=== PATIENT | female | born 1950 | race Caucasian/White ===

== ENCOUNTER 2016-11-15 13:53 | Emergency (ER) | payer MEDICARE, BC ==
[~2016-11-15] VITALS: Ht 160 cm; Wt 66.0 kg
[~2016-11-15 13:53] MED LIST: CARV12.52 PO; DIPH25 PO; ENOX40P SQ; HYDR-2768 PO; HYDR-3580 PO; LOSA50TA PO; PAXI10TA PO; PERI8.6T PO; THERM PO; THIA100T PO
[2016-11-15 14:14] VITALS: BP 157/83; PULSE 78; RESP 18; TEMP 98.5; O2SAT 95
[2016-11-15] MEDS ORDERED: POTA-243 PO (16:14)
[2016-11-15] MEDS ORDERED: HYDR25TA5 PO (16:14)
[2016-11-15] MEDS ORDERED: LOSA50TA PO (16:14)
[2016-11-15] MEDS ORDERED: CARV12.52 PO (16:14)
[2016-11-15] MEDS ORDERED: PARO1TAB71 PO (16:14)
[2016-11-15] MEDS ORDERED: MOME17I EACH NARE (17:16)
[2016-11-15] MEDS ORDERED: PRED-503 PO (17:16)
[2016-11-15] MEDS ORDERED: BENZ100 PO (17:16)
--- NOTE | 2016-11-15 17:18 | PD ---
HPI Chief Complaint: Cold / Flu Symptoms Time Seen by Provider: 17:14 Travel History International Travel<30 days: No Contact w/Intl Traveler<30days: No Traveled to known affect area: No History of Present Illness HPI 66-year-old female presents to the emergency Department with complaint of body aches, chills, cough, nasal congestion since yesterday. Reports feeling hot but cannot report a MAXIMUM TEMPERATURE. Has history of COPD. Reports tobacco use daily. Coughing up green/yellow phlegm. Uses an inhaler daily for COPD. Has albuterol inhaler and has been using it with good relief. Denies wheezing. Denies chest pain, shortness of breath. Denies ear pain. Reports throat irritation with cough. Cough is worse at night. Denies abdominal pain, nausea , vomiting. Has tried Benadryl with minimal relief of symptoms. Is requesting antibiotics so she does not get pneumonia. Dr. Hutson is primary care provider. No other modifying factors or associated signs and symptoms. PFSH Past Medical History Hx Anticoagulant Therapy: Yes (ASA 81mg) Arthritis: No Asthma: No Autoimmune Disease: No Anxiety: Yes (PANIC ATTACKS) Depression: No Heart Rhythm Problems: Yes (ATRIAL FIBRILLATION) Cancer: No Cardiac Catheterization: Yes Cardiovascular Problems: Yes High Cholesterol: Yes Chemotherapy: No Chest Pain: Yes Congestive Heart Failure: No COPD: Yes Cerebrovascular Accident: No Coronary Artery Disease: No Diabetes: No Diminished Hearing: No Endocrine: No Gastrointestinal Disorders: No GERD: No Genitourinary: No Headaches: No Hiatal Hernia: No Hypertension: Yes Immune Disorder: No Implanted Vascular Access Dvce: No Kidney Stones: No Musculoskeletal: Yes Neurologic: No Psychiatric: Yes Reproductive: Yes (HYSTERECTOMY) Respiratory: Yes Immunizations Current: Yes Migraines: No Radiation Therapy: No Renal Failure: No Seizures: No Sickle Cell Disease: No Sleep Apnea: No Thyroid Disease: No Ulcer: No Tetanus Vaccination: < 5 Years Influenza Vaccination: Yes Menopausal: Yes Past Surgical History Abdominal Surgery: No AICD: No Arteriovenous Shunt: No Cardiac Surgery: No Coronary Stent: Yes (X's 2) Ear Surgery: No Endocrine Surgery: No Eye Surgery: No Genitourinary Surgery: No Gynecologic Surgery: Yes (HYSTERECTOMY) Hysterectomy: Yes Insulin Pump: No Joint Replacement: No Neurologic Surgery: No Oral Surgery: No Pacemaker: No Thoracic Surgery: No Other Surgery: Yes (pylonidal cyst/NOSE RECONSTRUCTION) Social History Alcohol Use: Yes (Soc.) Tobacco Use: Yes (11/16 PPD) Substance Use: No Allergies-Medications (Allergen,Severity, Reaction): Coded Allergies: No Known Allergies (Unverified , 11/15/16) Reported Meds & Prescriptions Reported Meds & Active Scripts Active Tessalon Perles (Benzonatate) 100 Mg Cap 100 Mg PO TID PRN Nasonex Nasal [place] (Mometasone Furoate) 50 Mcg/Act Naspr 2 [place] EACH NARE DAILY PRN Deltasone (Prednisone) 20 Mg Tab 40 Mg PO DAILY 4 Days start 11/16/2016 Reported Losartan (Losartan Potassium) 50 Mg Tab 50 Mg PO DAILY Paroxetine (Paroxetine HCl) 10 Mg Tab 10 Mg PO BID Hydrochlorothiazide 25 Mg Tab 25 Mg PO DAILY Klor-Con 10 (Potassium Chloride) 10 Meq Tab 10 PO DAILY Carvedilol 12.5 Mg Tab 12.5 Mg PO BID Review of Systems Except as stated in HPI: all other systems reviewed are Neg Physical Exam Narrative GENERAL: Well-nourished, well-developed female patient, in no acute distress SKIN: Warm and dry. No rash. HEAD: Atraumatic. Normocephalic. EYES: Pupils equal and round at 3 mm with brisk reaction. No scleral icterus. No injection or drainage. PERRLA. ENT: Mucosa pink and moist. No erythema or exudates. No uvular edema. No uvular , palatal, or tonsillar deviation. Airway patent. EARS: Bilateral pinnae and external canals appear within normal limits. Bilateral tympanic membranes without erythema, dullness or perforation. NECK: Trachea midline. No lymphadenopathy. CARDIOVASCULAR: Regular rate and rhythm. No murmur appreciated. RESPIRATORY: No accessory muscle use. Clear to auscultation. Breath sounds equal bilaterally. GASTROINTESTINAL: Abdomen soft, non-tender, nondistended. Hepatic and splenic margins not palpable. Bowel sounds are active 4 quadrants. MUSCULOSKELETAL: No obvious deformities. No clubbing. No cyanosis. No edema. NEUROLOGICAL: Awake and alert. Oriented 3. No obvious cranial nerve deficits. Motor grossly within normal limits. Normal speech. Moves all extremities. 5/5 strength to all extremities. PSYCHIATRIC: Appropriate mood and affect; insight and judgment normal. Data Data Last Documented VS Vital Signs Date Time Temp Pulse Resp B/P Pulse Ox O2 Delivery O2 Flow Rate FiO2 1/1/17 14:14 98.5 78 18 157/83 95 Orders Prednisone (Deltasone) (11/15/16 17:30) MDM Medical Decision Making Medical Screen Exam Complete: Yes Emergency Medical Condition: Yes Medical Record Reviewed: Yes Differential Diagnosis Viral illness, acute bronchitis, COPD exacerbation, influenza Narrative Course 66-year-old female a chair and physical exam consistent with viral illness. She is afebrile and nontoxic-appearing. She is in no acute distress and her lung sounds are clear and equal throughout. Oxygen saturations 95% on room air and she is without retractions or tachypnea. History of COPD. Daily tobacco use. Uses it daily inhaler and an albuterol inhaler for COPD. Discussed viral illness and symptom management with patient; he showed requesting antibiotics for home. I will give the patient a prescription for azithromycin as requested. Patient has albuterol inhaler at home. Deltasone administered in the ER. Azithromycin, Deltasone, Nasonex, Tessalon Perles prescribed for home. Patient is medically cleared and stable for discharge. Discussed reasons to return to the emergency department. Instructed patient to follow up with primary care provider. Patient agrees with treatment plan. The patients vital signs are stable and the patient is stable for outpatient follow-up and treatment. Patient discharged home, stable and in no acute distress. Diagnosis Primary Impression: Viral illness Referrals: Primary Care Physician Patient Instructions: Acute Bronchitis (ED), Cold Symptoms (ED), General Instructions Additional Instructions: Ibuprofen or Tylenol as directed and as needed to reduce fever Use home inhalers as instructed and as needed for shortness of breath/wheezing Oral steroids as prescribed Suot-box-[id number] antihistamines or decongestants as directed and as needed for symptom management Get plenty of sleep/rest Drink plenty of fluids to prevent dehydration [place] diet to encourage nutrition such as crackers, fruit, applesauce, toast, soup etc. Use an air humidifier/turn off ceiling fans Follow-up with your primary care provider within 1-2 days Return immediately to the emergency department with worsening of symptoms Med/Other Pt SpecificInfo: Prescription(s) given Scripts Azithromycin 500 Mg [id number] Mg PO DAILY #5 TAB Ref 0 Prov:Caro Abreu [employer] 11/15/16 Benzonatate (Tessalon Perles)100 Mg [id number] Mg PO TID PRN (COUGH) #21 CAP Ref 0 Prov:Caro Abreu 11/15/16 Mometasone Nasal [place] (Nasonex Nasal [place])50 Mcg/Act Naspr2 [place] EACH NARE DAILY PRN (NASAL CONGESTION) #1 BOTTLE Ref 0 Prov:Caro Abreu 11/15/16 Prednisone (Deltasone)20 Mg Tab40 Mg PO DAILY 4 Days Ref 0 start 11/16/2016 Prov:Caro Abreu 11/15/16 Disposition: 01 DISCHARGE HOME Condition: Stable Caro Abreu Nov 15, 2016 17:18
[2016-11-15] MEDS ORDERED: AZIT500T2 PO (17:24)
[2016-11-15] MEDS ORDERED: predniSONE 20 MG TAB PO ONE (17:30)
== END 2016-11-15 17:43 | disposition home or self-care (01) ==
LOC: PHED 13:53 → PHEFT 17:43
DX: B34.9 Viral infection, unspecified (principal); I48.91 Unspecified atrial fibrillation; J44.9 Chronic obstructive pulmonary disease, unspecified; I10 Essential (primary) hypertension
CPT/HCPCS: 99283; J7512

== ENCOUNTER 2016-12-14 09:37 | Emergency (ER) | payer MEDICARE, BC ==
[~2016-12-14] VITALS: Ht 162.6 cm; Wt 61.5 kg
[~2016-12-14 09:37] MED LIST changes: +AZIT500T2 PO; +BENZ100 PO; -DIPH25 PO; -ENOX40P SQ; -HYDR-2768 PO; -HYDR-3580 PO; +HYDR25TA5 PO; +MOME17I EACH NARE; +PARO1TAB71 PO; -PAXI10TA PO; -PERI8.6T PO; +POTA-243 PO; +PRED-503 PO; -THERM PO; -THIA100T PO
[2016-12-14 09:46] VITALS: BP 142/82; PULSE 91; RESP 18; TEMP 98; O2SAT 92
[2016-12-14] MEDS ORDERED: BUPR100CR PO (10:17)
[2016-12-14] MEDS ORDERED: methylPREDNISolone SOD SUCC 125 MG/2 ML VIAL IVP ONE (10:30)
[2016-12-14] MEDS ORDERED: SODIUM CHLORIDE 0.9% FLUSH 5 ML FLUSH IVF PRN (10:30)
[2016-12-14] MEDS: RESP: ALBUTEROL 2.5 MG/IPRATROPIUM 0.5 MG NEB (SCH) INH (10:36)
[2016-12-14 10:45] VITALS: O2SAT 94
[2016-12-14 10:46] LABS: AUTOMATED NEUTROPHIL # 5.6 TH/MM3 (1.8-7.7); BASOPHIL # 0.1 TH/MM3 (0-0.2); BASOPHIL % 0.8 % (0.0-2.0); EOSINOPHIL % 0.4 % (0.0-4.0); HEMATOCRIT 56.5 % (35.0-46.0); HEMO FLAGS DIFF FINAL; LYMPH % 21.8 % (9.0-44.0); LYMPHOCYTE # 1.9 TH/MM3 (1.0-4.8); MEAN CELL VOLUME 98.9 FL (80.0-100.0); MEAN CORPUSCULAR HEMOGLOBIN 33.1 PG (27.0-34.0); MEAN CORPUSCULAR HGB CONC 33.5 % (32.0-36.0); MONO % 11.4 % (0.0-8.0); NEUT % 65.6 % (16.0-70.0); PLATELET COUNT 213 TH/MM3 (150-450); RED BLOOD COUNT 5.71 MIL/MM3 (4.00-5.30); RED CELL DISTRIBUTION WIDTH 12.3 % (11.6-17.2); WHITE BLOOD COUNT 8.6 TH/MM3 (4.0-11.0)
[2016-12-14 10:57] LABS: CHLORIDE 97 MEQ/L (98-107); POTASSIUM 3.9 MEQ/L (3.5-5.1); SODIUM (NA) 137 MEQ/L (136-145)
[2016-12-14 11:00] LABS: ANION GAP 9 MEQ/L (5-15); BICARBONATE 30.9 MEQ/L (21.0-32.0)
[2016-12-14 11:01] LABS: BLOOD UREA NITROGEN 17 MG/DL (7-18)
[2016-12-14 11:03] LABS: ALT (GPT) 30 U/L (10-53); AST (GOT) 18 U/L (15-37); GLOMERULAR FILTRATION RATE 75 ML/MIN (>89)
[2016-12-14 11:05] LABS: TOTAL BILIRUBIN ADULT 0.6 MG/DL (0.2-1.0)
[2016-12-14 11:06] LABS: ALKALINE PHOSPHATASE 90 U/L (45-117)
[2016-12-14 11:15] VITALS: BP 157/81; PULSE 86; RESP 18; O2SAT 91
--- NOTE | 2016-12-14 11:37 | RADHPO ---
EXAM DATE/TIME: 12/14/2016 11:23 [facility] COMPARISON: CHEST SINGLE AP, February 15, 2016, 0:00. INDICATIONS : Short of breath MEDICAL HISTORY : Chronic obstructive pulmonary disease. SURGICAL HISTORY : Cardiac stent x 2 ENCOUNTER: Initial ACUITY: 1 month PAIN SCORE: 0/10 LOCATION: Bilateral chest FINDINGS: PA and lateral views of the chest demonstrate the lungs to be hyperaerated consistent with COPD witho ut evidence of mass, infiltrate or effusion. The cardiomediastinal contours are unremarkable. [place] us structures are intact. CONCLUSION: Hyperaeration consistent with COPD. No acute cardiopulmonary process Gary Higuera MD on December 14, 2016 at 11:35 Board Certified Radiologist. This report was verified electronically.
[2016-12-14] MEDS ORDERED: MEDR4PAK PO (12:26)
--- NOTE | 2016-12-14 12:26 | PD ---
HPI Chief Complaint: Respiratory Symptoms Time Seen by Provider: 10:10 Travel History International Travel<30 days: No Contact w/Intl Traveler<30days: No Traveled to known affect area: No History of Present Illness HPI Patient is a 66-year-old female who comes in complaining of shortness of breath. She has had 2 courses of antibiotics over the past month, most recently finishing a Z-Rick about a week ago. She says she also finished a course of steroids last week. She has history of COPD and has been taking her medications as directed. She last used her nebulizer last night. She says she woke up this morning and checked her pulse ox which read at 88-91%, and this made her nervous. She says overall she has been feeling better, she has had decreased coughing, but she still feels short of breath. She denies any fever or chills. She denies any leg swelling. She denies any chest pain. PFSH Past Medical History Hx Anticoagulant Therapy: No Arthritis: No Asthma: No Autoimmune Disease: No Anxiety: Yes (Panic attacks) Depression: No Heart Rhythm Problems: Yes (AF) Cancer: No Cardiac Catheterization: Yes Cardiovascular Problems: Yes (HTN) High Cholesterol: Yes Chemotherapy: No Chest Pain: Yes Congestive Heart Failure: No COPD: Yes Cerebrovascular Accident: No Coronary Artery Disease: No Diabetes: No Diminished Hearing: No Endocrine: No Gastrointestinal Disorders: No GERD: No Genitourinary: No Headaches: No Hiatal Hernia: No Hypertension: Yes Immune Disorder: No Implanted Vascular Access Dvce: No Kidney Stones: No Musculoskeletal: Yes Neurologic: No Psychiatric: Yes Reproductive: Yes (HYSTERECTOMY) Respiratory: Yes (COPD) Immunizations Current: Yes Migraines: No Radiation Therapy: No Renal Failure: No Seizures: No Sickle Cell Disease: No Sleep Apnea: No Thyroid Disease: No Ulcer: No Tetanus Vaccination: < 5 Years Influenza Vaccination: Yes ?: Not Menopausal: Yes Past Surgical History Abdominal Surgery: No AICD: No Arteriovenous Shunt: No Cardiac Surgery: No Coronary Stent: Yes (X's 2) Ear Surgery: No Endocrine Surgery: No Eye Surgery: No Genitourinary Surgery: No Gynecologic Surgery: Yes (HYSTERECTOMY) Hysterectomy: Yes Insulin Pump: No Joint Replacement: No Neurologic Surgery: No Oral Surgery: No Pacemaker: No Thoracic Surgery: No Other Surgery: Yes (Pilonidal cyst removal, nose recon. ) Social History Alcohol Use: Yes (Occ.) Tobacco Use: No Substance Use: No Allergies-Medications (Allergen,Severity, Reaction): Coded Allergies: No Known Allergies (Unverified , 12/14/16) Reported Meds & Prescriptions Reported Meds & Active Scripts Active Medrol Dosepak (Methylprednisolone) 4 Mg Dspk 4 Mg PO DIRECTED Per Pharmacist direction Reported Wellbutrin SR 12 HR (Bupropion HCl) 100 Mg Tab 100 Mg PO Q12HR Losartan (Losartan Potassium) 50 Mg Tab 50 Mg PO DAILY Hydrochlorothiazide 25 Mg Tab 25 Mg PO DAILY Klor-Con 10 (Potassium Chloride) 10 Meq Tab 10 PO DAILY Carvedilol 12.5 Mg Tab 12.5 Mg PO BID Review of Systems Except as stated in HPI: all other systems reviewed are Neg General / Constitutional: No: Fever, Chills HENT: No: Headaches, Lightheadedness Cardiovascular: No: Chest Pain or Discomfort Respiratory: Positive: Shortness of Breath, No: Cough Gastrointestinal: No: Nausea, Vomiting Genitourinary: No: Dysuria Musculoskeletal: No: Edema, Pain Skin: No Rash, No Change in Pigmentation Neurologic: No: Weakness, Dizziness Physical Exam Narrative GENERAL: Awake and alert in no acute distress. SKIN: Warm and dry. HEAD: Atraumatic. Normocephalic. EYES: Pupils equal and round. No scleral icterus. ENT: Mucous membranes pink and moist. NECK: Trachea midline. No JVD. CARDIOVASCULAR: Regular rate and rhythm. No murmur appreciated. RESPIRATORY: No accessory muscle use. Breath sounds decreased bilaterally. No rales or crackles. GASTROINTESTINAL: Abdomen soft, non-tender, nondistended. MUSCULOSKELETAL: No obvious deformities. No clubbing. No cyanosis. No edema. NEUROLOGICAL: Awake and alert. No obvious cranial nerve deficits. Motor grossly within normal limits. Normal speech. PSYCHIATRIC: Appropriate mood and affect; insight and judgment normal. Data Data Last Documented VS Vital Signs Date Time Temp Pulse Resp B/P Pulse Ox O2 Delivery O2 Flow Rate FiO2 12/14/16 12:35 81 16 153/92 93 Room Air 12/14/16 11:15 2 12/14/16 09:46 98.0 Orders Complete Blood Count With Diff (12/14/16 10:25) Comprehensive Metabolic Panel (12/14/16 10:25) B-Type Natriuretic Peptide (12/14/16 10:25) Troponin I (12/14/16 10:25) Iv Access Insert/Monitor (12/14/16 10:25) Ecg Monitoring (12/14/16 10:25) Oximetry (12/14/16 10:25) Oxygen Administration (12/14/16 10:25) Chest, Pa & Lat (12/14/16 10:25) Sodium Chloride 0.9% Flush (Ns Flush) (12/14/16 10:30) Methylprednisolone So Succ Inj (Solumedr (12/14/16 10:30) Albuterol-Ipratropium Neb (Duoneb Neb) (12/14/16 10:30) Labs Laboratory Tests Test 12/14/16 10:40 White Blood Count 8.6 TH/MM3 Red Blood Count 5.71 MIL/MM3 Hemoglobin 18.9 GM/DL Hematocrit 56.5 % Mean Corpuscular Volume 98.9 FL Mean Corpuscular Hemoglobin 33.1 PG Mean Corpuscular Hemoglobin 33.5 % Concent Red Cell Distribution Width 12.3 % Platelet Count 213 TH/MM3 Mean Platelet Volume 8.4 FL Neutrophils (%) (Auto) 65.6 % Lymphocytes (%) (Auto) 21.8 % Monocytes (%) (Auto) 11.4 % Eosinophils (%) (Auto) 0.4 % Basophils (%) (Auto) 0.8 % Neutrophils # (Auto) 5.6 TH/MM3 Lymphocytes # (Auto) 1.9 TH/MM3 Monocytes # (Auto) 1.0 TH/MM3 Eosinophils # (Auto) 0.0 TH/MM3 Basophils # (Auto) 0.1 TH/MM3 CBC Comment DIFF FINAL Differential Comment Sodium Level 137 MEQ/L Potassium Level 3.9 MEQ/L Chloride Level 97 MEQ/L Carbon Dioxide Level 30.9 MEQ/L Anion Gap 9 MEQ/L Blood Urea Nitrogen 17 MG/DL Creatinine 0.77 MG/DL Estimat Glomerular Filtration 75 ML/MIN Rate Random Glucose 132 MG/DL Calcium Level 9.5 MG/DL Total Bilirubin 0.6 MG/DL Aspartate Amino Transf 18 U/L (AST/SGOT) Alanine Aminotransferase 30 U/L (ALT/SGPT) Alkaline Phosphatase 90 U/L Troponin I LESS THAN 0.02 NG/ML B-Type Natriuretic Peptide 33 PG/ML Total Protein 8.4 GM/DL Albumin 4.3 GM/DL MDM Medical Decision Making Medical Screen Exam Complete: Yes Emergency Medical Condition: Yes Medical Record Reviewed: Yes Differential Diagnosis COPD exacerbation versus pneumonia versus bronchitis versus anxiety Narrative Course Patient is a 66-year-old female who comes in complaining of shortness of breath. Exam shows decreased at sounds both lungs. IV established, labs sent. Chest x-ray performed shows hyperinflated lungs consistent with COPD. Labs show a hemoglobin of 18, which is also consistent with COPD. Patient given 3 duo nebs as well as a dose of Solu-Medrol. She reports feeling much better. Oxygen saturation has ranged from 92-95% on room air. I spoke with the patient's primary care physician, Dr. Hutson, he will see her in the office tomorrow morning. Patient will be given prescription for Medrol Dosepak. Advised follow-up with Dr. Hutson tomorrow. Advised to return to the ED at any time if her symptoms are worsening. Diagnosis Primary Impression: COPD exacerbation Patient Instructions: COPD (Chronic Obstructive Pulmonary Disease) (ED), General Instructions Additional Instructions: Follow up with Dr. Hutson tomorrow morning. Use your nebulizer every 4 hours for the next day. Take the steroids starting tomorrow as you already had a dose today. Return to the ED as needed for any worsening symptoms. Scripts Methylprednisolone Dosepak (Medrol Dosepak)4 Mg Dspk4 Mg PO DIRECTED #1 DSPK Ref 0 Per Pharmacist direction Prov:Teresita Mendoza MD 12/14/16 Disposition: 01 DISCHARGE HOME Condition: Stable Teresita Mendoza MD Dec 14, 2016 12:26
[2016-12-14 12:35] VITALS: BP 153/92; PULSE 81; RESP 16; O2SAT 93
== END 2016-12-14 12:55 | disposition home or self-care (01) ==
LOC: PHED 09:37
DX: J44.1 Chronic obstructive pulmonary disease with (acute) exacerbation (principal); R05 Cough; I10 Essential (primary) hypertension; E78.00 Pure hypercholesterolemia, unspecified; Z86.59 Personal history of other mental and behavioral disorders; Z86.79 Personal history of other diseases of the circulatory system; Z87.09 Personal history of other diseases of the respiratory system; Z87.39 Personal history of other diseases of the musculoskeletal system and connective tissue; Z87.42 Personal history of other diseases of the female genital tract
CPT/HCPCS: 71020; 80053; 83880; 84484; 85025; 94640; 94664; 96374; 99285; J2930

== ENCOUNTER 2017-10-03 12:09 | Emergency (ER) | payer MEDICARE, BC ==
[~2017-10-03] VITALS: Ht 160 cm; Wt 67.0 kg
[~2017-10-03 12:09] MED LIST changes: -AZIT500T2 PO; -BENZ100 PO; +BUPR100CR PO; +KLOR10TA PO; +MEDR4PAK PO; -MOME17I EACH NARE; -PARO1TAB71 PO; -POTA-243 PO; -PRED-503 PO
[2017-10-03 12:13] VITALS: BP 175/77; PULSE 80; RESP 16; TEMP 98.2; O2SAT 95
[2017-10-03] MEDS ORDERED: AZIT250T3 PO (12:58)
[2017-10-03] MEDS ORDERED: PRED20 PO (12:58)
--- NOTE | 2017-10-03 12:59 | PD ---
HPI Chief Complaint: Cold / Flu Symptoms Time Seen by Provider: 12:36 Travel History International Travel<30 days: No Contact w/Intl Traveler<30days: No Traveled to known affect area: No History of Present Illness HPI 66 old female with history of COPD here for evaluation of productive cough 3 days. Patient reports symptoms started approximately 5-7 days ago has mild URI symptoms and progressed to this harsh cough. She reports chills and mild shortness of breath with coughing episodes. Symptom severity is moderate. No alleviating factors. PFSH Past Medical History Hx Anticoagulant Therapy: No Arthritis: No Asthma: No Autoimmune Disease: No Anxiety: Yes (Panic attacks) Depression: No Heart Rhythm Problems: Yes (AF) Cancer: No Cardiac Catheterization: Yes Cardiovascular Problems: Yes (HTN) High Cholesterol: Yes Chemotherapy: No Chest Pain: Yes Congestive Heart Failure: No COPD: Yes Cerebrovascular Accident: No Coronary Artery Disease: No Diabetes: No Diminished Hearing: No Endocrine: No Gastrointestinal Disorders: No GERD: No Genitourinary: No Headaches: No Hiatal Hernia: No Hypertension: Yes Immune Disorder: No Implanted Vascular Access Dvce: No Kidney Stones: No Musculoskeletal: Yes Neurologic: No Psychiatric: Yes Reproductive: Yes (HYSTERECTOMY) Respiratory: Yes (COPD) Immunizations Current: Yes Migraines: No Radiation Therapy: No Renal Failure: No Seizures: No Sickle Cell Disease: No Sleep Apnea: No Thyroid Disease: No Ulcer: No Influenza Vaccination: Yes ?: Not Menopausal: Yes Past Surgical History Abdominal Surgery: No AICD: No Arteriovenous Shunt: No Cardiac Surgery: No Coronary Stent: Yes (X's 2) Ear Surgery: No Endocrine Surgery: No Eye Surgery: No Genitourinary Surgery: No Gynecologic Surgery: Yes (HYSTERECTOMY) Hysterectomy: Yes Insulin Pump: No Joint Replacement: No Neurologic Surgery: No Oral Surgery: No Pacemaker: No Thoracic Surgery: No Other Surgery: Yes (Pilonidal cyst removal, nose recon. ) Social History Alcohol Use: Yes (Occ.) Tobacco Use: Yes Substance Use: No Allergies-Medications (Allergen,Severity, Reaction): Coded Allergies: No Known Allergies (Unverified Adverse Reaction, Unknown, 10/03/17) Reported Meds & Prescriptions Reported Meds & Active Scripts Active Reported Wellbutrin SR 12 HR (Bupropion HCl) 100 Mg Tab 100 Mg PO Q12HR Losartan (Losartan Potassium) 50 Mg Tab 50 Mg PO DAILY Hydrochlorothiazide 25 Mg Tab 25 Mg PO DAILY Klor-Con 10 (Potassium Chloride) 10 Meq Tab 10 PO DAILY Carvedilol 12.5 Mg Tab 12.5 Mg PO BID Review of Systems Except as stated in HPI: all other systems reviewed are Neg General / Constitutional: Positive: Chills Respiratory: Positive: Cough Physical Exam Narrative GENERAL: Well-nourished, well-developed patient. SKIN: Focused skin assessment warm/dry. HEAD: Normocephalic. EYES: No scleral icterus. No injection or drainage. NECK: Supple, trachea midline. No JVD or lymphadenopathy. CARDIOVASCULAR: Regular rate and rhythm without murmurs, gallops, or rubs. RESPIRATORY: Breath sounds equal bilaterally. No accessory muscle use. Harsh sounding cough with questionable rhonchi GASTROINTESTINAL: Abdomen soft, non-tender, nondistended. Data Data Last Documented VS Vital Signs Date Time Temp Pulse Resp B/P (MAP) Pulse Ox O2 Delivery O2 Flow Rate FiO2 10/03/17 12:13 98.2 80 16 175/77 (109) 95 MDM Medical Decision Making Medical Screen Exam Complete: Yes Emergency Medical Condition: Yes Differential Diagnosis Pneumonia, bronchitis, influenza Narrative Course 66-year-old female with history COPD here with productive cough and chills 3 days. On exam patient has harsh sounding cough and question rhonchi. Her vital signs are stable. She is nontoxic appearing. Diagnosis Primary Impression: Bronchitis Referrals: Primary Care Physician Scripts Prednisone (Prednisone) 20 Mg Tab 40 MG PO DAILY, #10 TAB 0 Refills Take 40 mg (2 tablets) daily for 5 days Prov: Tierra Martinez 10/03/17 Azithromycin (Azithromycin) 250 Mg Tab 250 MG PO DIRECTED for Infection, #6 TAB 0 Refills Take 2 tabs (500 mg) on day 1 then 1 tab daily x 4 days. Prov: Tierra Martinez 10/03/17 Disposition: 01 DISCHARGE HOME Condition: Stable Tierra Martinez Oct 03, 2017 12:59
== END 2017-10-03 13:05 | disposition home or self-care (01) ==
LOC: PHEFT 12:09
DX: J44.9 Chronic obstructive pulmonary disease, unspecified (principal); I10 Essential (primary) hypertension; Z72.0 Tobacco use
CPT/HCPCS: 99284

== ENCOUNTER 2018-02-09 16:16 | Emergency (ER) | payer MEDICARE, BC ==
[~2018-02-09] VITALS: Ht 160 cm; Wt 63.8 kg
[~2018-02-09 16:16] MED LIST changes: +AZIT250T3 PO; -MEDR4PAK PO; +PRED20 PO
[2018-02-09 16:30] VITALS: BP 163/76; PULSE 83; RESP 16; TEMP 99.3; O2SAT 98
[2018-02-09] MEDS ORDERED: KETOROLAC TROMETHAMINE 60 MG/2 ML (IM) VIAL IM ONE (17:30)
[2018-02-09] MEDS ORDERED: PARO10TA2 PO (17:36)
--- NOTE | 2018-02-09 17:42 | RADRPT ---
EXAM DATE/TIME: 02/09/2018 17:28 [facility] COMPARISON: No previous studies available for comparison. INDICATIONS : Left hip pain for 3 weeks with no known injury MEDICAL HISTORY : None. SURGICAL HISTORY : None. ENCOUNTER: Initial ACUITY: 3 weeks PAIN SCORE: 10/10 LOCATION: Left entire hip FINDINGS: Examination of the left hip was performed with AP Pelvis. The primary and secondary trabecular patte rn of the femoral neck is intact. The hip joint is of normal width without significant sclerosis or bony hypertrophy. The acetabulum is grossly intact. There is good alignment of the SI joints and pub ic symphysis. No arthropathy is demonstrated. CONCLUSION: Unremarkable exam for patient's age. Amor Estes MD on February 09, 2018 at 17:40 Board Certified Radiologist. This report was verified electronically.
[2018-02-09] MEDS ORDERED: DICL75TA PO (17:47)
[2018-02-09] MEDS ORDERED: PRED20 PO (17:47)
--- NOTE | 2018-02-09 17:53 | PD ---
HPI Chief Complaint: Musculoskeletal Complaint Time Seen by Provider: 17:13 Travel History International Travel<30 days: No Contact w/Intl Traveler<30days: No Traveled to known affect area: No History of Present Illness HPI 67-year-old female that presents to the ED for evaluation of pain to her left hip with no injury. Per patient is up and about 3 weeks ago. Per patient she was deep sea fishing and laying on the side of both with no discomfort until the day after. Per patient she is developing pain since. No falls or injuries. No prior surgeries or injuries. Per patient the pain has been ongoing for the past 3 weeks and is not getting better. She is taking some Lortab for her pain with no relief. Denies any urinary or bowel movement issues. No numbness or tingling. Per patient the pain stays mainly on the left lateral hip and then moves to the buttocks. Does not move anywhere else. Allergic to penicillin. PFSH Past Medical History Hx Anticoagulant Therapy: No Arthritis: No Asthma: No Autoimmune Disease: No Anxiety: Yes (Panic attacks) Depression: No Heart Rhythm Problems: Yes (AF) Cancer: No Cardiac Catheterization: Yes Cardiovascular Problems: Yes (HTN) High Cholesterol: Yes Chemotherapy: No Chest Pain: Yes Congestive Heart Failure: No COPD: Yes Cerebrovascular Accident: No Coronary Artery Disease: No Diabetes: No Diminished Hearing: No Endocrine: No Gastrointestinal Disorders: No GERD: No Genitourinary: No Headaches: No Hiatal Hernia: No Hypertension: Yes Immune Disorder: No Implanted Vascular Access Dvce: No Kidney Stones: No Musculoskeletal: Yes Neurologic: No Psychiatric: Yes (PTSD) Reproductive: Yes (HYSTERECTOMY) Respiratory: Yes (COPD) Immunizations Current: Yes Migraines: No Myocardial Infarction: Yes Radiation Therapy: No Renal Failure: No Seizures: No Sickle Cell Disease: No Sleep Apnea: No Thyroid Disease: No Ulcer: No Tetanus Vaccination: < 5 Years Influenza Vaccination: Yes ?: Not Menopausal: Yes Past Surgical History Abdominal Surgery: No AICD: No Arteriovenous Shunt: No Cardiac Surgery: No Coronary Stent: Yes (X's 2) Ear Surgery: No Endocrine Surgery: No Eye Surgery: No Genitourinary Surgery: No Gynecologic Surgery: Yes (HYSTERECTOMY) Hysterectomy: Yes Insulin Pump: No Joint Replacement: No Neurologic Surgery: No Oral Surgery: No Pacemaker: No Thoracic Surgery: No Other Surgery: Yes (Pilonidal cyst removal, nose recon. ) Social History Alcohol Use: Yes (Occ.) Tobacco Use: Yes (1PPD) Substance Use: No Allergies-Medications (Allergen,Severity, Reaction): Coded Allergies: Penicillins (Verified Allergy, Intermediate, RASH, 02/09/18) No Known Allergies (Unverified Adverse Reaction, Unknown, 02/09/18) Reported Meds & Prescriptions Reported Meds & Active Scripts Active Diclofenac Sodium DR (Diclofenac Sodium) 75 Mg Tabdr 75 Mg PO BID PRN Prednisone 20 Mg Tab 20 Mg PO BID 5 Days Reported Paroxetine (Paroxetine HCl) 10 Mg Tab 10 Mg PO BID Losartan (Losartan Potassium) 50 Mg Tab 50 Mg PO DAILY Hydrochlorothiazide 25 Mg Tab 25 Mg PO DAILY Klor-Con 10 (Potassium Chloride) 10 Meq Tab 10 PO DAILY Carvedilol 12.5 Mg Tab 12.5 Mg PO BID Review of Systems Except as stated in HPI: all other systems reviewed are Neg Physical Exam Narrative GENERAL: SKIN: Warm and dry. HEAD: Atraumatic. Normocephalic. EYES: Pupils equal and round. No scleral icterus. No injection or drainage. ENT: No nasal bleeding or discharge. Mucous membranes pink and moist. Tongue is midline. No uvula deviation. NECK: Trachea midline. No JVD. CARDIOVASCULAR: Regular rate and rhythm. RESPIRATORY: No accessory muscle use. Clear to auscultation. Breath sounds equal bilaterally. GASTROINTESTINAL: Abdomen soft, non-tender, nondistended. Hepatic and splenic margins not palpable. MUSCULOSKELETAL: Extremities without clubbing, cyanosis, or edema. No obvious deformities. Full range of motion of the upper and lower extremities bilaterally. 2+ pulses bilaterally. Patient has a producible pain on the lateral aspect of the hip. Point tenderness to palpation on the area of the bursa. Full range of motion of the hip has pain with internal/external rotation. No lumbar, thoracic, cervical spine tenderness to palpation. Able to ambulate but with a limp. NEUROLOGICAL: Awake and alert. No obvious cranial nerve deficits. Motor grossly within normal limits. Five out of 5 muscle strength in the arms and legs. Normal speech. PSYCHIATRIC: Appropriate mood and affect; insight and judgment normal. Data Data Last Documented VS Vital Signs Date Time Temp Pulse Resp B/P (MAP) Pulse Ox O2 Delivery O2 Flow Rate FiO2 02/09/18 16:30 99.3 83 16 163/76 (105) 98 Orders Orders Ketorolac Inj (Toradol Inj) (02/09/18 17:30) Hip, Uni(Ap&Lat) W Ap Pelvis (02/09/18 ) MDM Medical Decision Making Medical Screen Exam Complete: Yes Emergency Medical Condition: Yes Medical Record Reviewed: Yes Interpretation(s) Last Impressions Hip and Pelvis X-Ray 02/09/18 0000 Signed Impressions: Service Date/Time: Friday, February 09, 2018 17:28 - CONCLUSION: Unremarkable exam for patient's age. Amor Estes MD Differential Diagnosis Acute on chronic pain versus chronic pain versus hip pain versus arthritis versus bursitis Narrative Course 67-year-old female that presents to the ED for evaluation of hip pain. Patient was properly examined and was found to have signs and symptoms consistent with musculoskeletal pain. X-rays were done. X-rays were negative for acute disease. Minimal arthritis of any. From where the patient is hurting in her symptoms this is likely bursitis. We will treat with anti-inflammatories to help with pain. Told to follow closely with PCP. See ED worsening symptoms. Diagnosis Primary Impression: Hip bursitis, left Qualified Codes: M70.62 - Trochanteric bursitis, left hip Referrals: Singh Gaston MD, Todd Andrew MD Rhodes, J. Richard Richard MD Patient Instructions: General Instructions Additional Instructions: Take medications as prescribed. Follow-up with PCP or orthopaedic doctor. See ED for any worsening symptoms. Do not drink or drive while taking pain medication. Apply ice or heat as needed for pain Med/Other Pt SpecificInfo: Prescription(s) given Scripts Diclofenac Sodium (Diclofenac Sodium DR) 75 Mg Tabdr 75 MG PO BID Y for PAIN SCALE 1 TO 10, #20 TAB 0 Refills Prov: Flash Phan MD 02/09/18 Prednisone (Prednisone) 20 Mg Tab 20 MG PO BID for 5 Days, #10 TAB 0 Refills Prov: Flash Phan MD 02/09/18 Disposition: 01 DISCHARGE HOME Condition: Stable Max Minor Feb 09, 2018 17:53
[2018-02-09] MEDS ORDERED: PERC5TAB12 PO (17:55)
== END 2018-02-09 18:27 | disposition home or self-care (01) ==
LOC: PHED 16:16 → PHEFT 18:27
DX: M70.62 Trochanteric bursitis, left hip (principal); I48.91 Unspecified atrial fibrillation; I10 Essential (primary) hypertension; E78.00 Pure hypercholesterolemia, unspecified; J44.9 Chronic obstructive pulmonary disease, unspecified; F43.10 Post-traumatic stress disorder, unspecified; I25.2 Old myocardial infarction; F17.200 Nicotine dependence, unspecified, uncomplicated; Z79.899 Other long term (current) drug therapy
CPT/HCPCS: 73502; 96372; 99283; J1885

== ENCOUNTER 2018-04-09 13:42 | Emergency (ER) | payer MEDICARE, BC ==
[~2018-04-09] VITALS: Ht 160 cm; Wt 65.0 kg
[~2018-04-09 13:42] MED LIST changes: -AZIT250T3 PO; -BUPR100CR PO; +DICL75TA PO; +PARO10TA2 PO; +PERC5TAB12 PO
[2018-04-09 13:44] VITALS: BP 143/73; PULSE 85; RESP 16; TEMP 98.4; O2SAT 95
[2018-04-09] MEDS ORDERED: BUPR100T4 PO (14:11)
[2018-04-09] MEDS ORDERED: ASPI81CH7 CHEW (14:11)
[2018-04-09] MEDS ORDERED: ZITHTAB PO (14:30)
--- NOTE | 2018-04-09 14:31 | PD ---
HPI Chief Complaint: ENT Complaint Time Seen by Provider: 14:26 Travel History International Travel<30 days: No Contact w/Intl Traveler<30days: No Traveled to known affect area: No History of Present Illness HPI 67-year-old female complains of facial pain facial pressure postnasal drip, earache sore throat coughing congestion. Patient states that his symptoms started about a week ago. Patient denies any fever chills. Patient states her cough is intermittent and mildly productive. Patient denies any chest pain shortness of breath. Patient denies abdominal pain. Patient denies any nausea vomiting diarrhea. PFSH Past Medical History Hx Anticoagulant Therapy: No Arthritis: No Asthma: No Autoimmune Disease: No Anxiety: Yes (Panic attacks) Depression: No Heart Rhythm Problems: Yes (AF) Cancer: No Cardiac Catheterization: Yes Cardiovascular Problems: Yes (VT) High Cholesterol: Yes Chemotherapy: No Chest Pain: Yes Congestive Heart Failure: No COPD: Yes Cerebrovascular Accident: No Coronary Artery Disease: No Diabetes: No Diminished Hearing: No Endocrine: No Gastrointestinal Disorders: No GERD: No Genitourinary: No Headaches: No Hiatal Hernia: No Heparin Induced Thrombocytopen: No Hypertension: Yes Immune Disorder: No Implanted Vascular Access Dvce: No Kidney Stones: No Musculoskeletal: Yes Neurologic: No Psychiatric: Yes (PTSD) Reproductive: Yes (HYSTERECTOMY) Respiratory: Yes (COPD) Immunizations Current: Yes Migraines: No Myocardial Infarction: Yes Radiation Therapy: No Renal Failure: No Seizures: No Sickle Cell Disease: No Sleep Apnea: No Thyroid Disease: No Ulcer: No Tetanus Vaccination: Unknown ?: Not Menopausal: Yes Past Surgical History Abdominal Surgery: No AICD: No Arteriovenous Shunt: No Cardiac Surgery: No Coronary Stent: Yes (X's 2) Ear Surgery: No Endocrine Surgery: No Eye Surgery: No Genitourinary Surgery: No Gynecologic Surgery: Yes (HYSTERECTOMY) Hysterectomy: Yes Insulin Pump: No Joint Replacement: No Neurologic Surgery: No Oral Surgery: No Pacemaker: No Thoracic Surgery: No Other Surgery: Yes (Pilonidal cyst removal, nose recon. ) Social History Alcohol Use: Yes (Occ.) Tobacco Use: Yes (1PPD) Substance Use: No Allergies-Medications (Allergen,Severity, Reaction): Coded Allergies: Penicillins (Verified Allergy, Intermediate, RASH, 04/09/18) Reported Meds & Prescriptions Reported Meds & Active Scripts Active Reported Aspirin Children's (Aspirin) 81 Mg Chew 81 Mg CHEW DAILY Bupropion HCl 100 Mg Tab 200 Mg PO BID Losartan (Losartan Potassium) 50 Mg Tab 50 Mg PO DAILY Hydrochlorothiazide 25 Mg Tab 25 Mg PO DAILY Klor-Con 10 (Potassium Chloride) 10 Meq Tab 10 PO DAILY Carvedilol 12.5 Mg Tab 12.5 Mg PO BID Review of Systems General / Constitutional: No: Fever Eyes: No: Visual changes HENT: Positive: Sore Throat, Congestion, Earache, No: Headaches Cardiovascular: No: Chest Pain or Discomfort Respiratory: Positive: Cough, No: Shortness of Breath Gastrointestinal: No: Abdominal Pain Genitourinary: No: Dysuria Musculoskeletal: No: Pain Skin: No Rash Neurologic: No: Weakness Psychiatric: No: Depression Endocrine: No: Polydipsia Hematologic/Lymphatic: No: Easy Bruising Physical Exam Narrative GENERAL: Well-nourished, well-developed patient. SKIN: Focused skin assessment warm/dry. HEAD: Normocephalic. Patient has tenderness on palpation of frontal and maxillary sinus area. EYES: No scleral icterus. No injection or drainage. TM: Clear. Patient has nasal mucosa erythematous and boggy. Throat: Mild erythematous. NECK: Supple, trachea midline. No JVD or lymphadenopathy. No meningismus CARDIOVASCULAR: Regular rate and rhythm without murmurs, gallops, or rubs. RESPIRATORY: Breath sounds equal bilaterally. No accessory muscle use. GASTROINTESTINAL: Abdomen soft, non-tender, nondistended. MUSCULOSKELETAL: No cyanosis, or edema. BACK: Nontender without obvious deformity. No CVA tenderness. Data Data Last Documented VS Vital Signs Date Time Temp Pulse Resp B/P (MAP) Pulse Ox O2 Delivery O2 Flow Rate FiO2 04/09/18 13:44 98.4 85 16 143/73 (96) 95 Orders Orders Ed Discharge Order (04/09/18 14:26) MDM Medical Decision Making Medical Screen Exam Complete: Yes Emergency Medical Condition: Yes Differential Diagnosis Differential diagnosis including URI, otitis media, pharyngitis, sinusitis, bronchitis, pneumonia. Narrative Course 67-year-old female complains of earaches, sore throat, sinus pressure, postnasal drip, coughing congestion. Diagnosis Primary Impression: Sinusitis Qualified Codes: J01.00 - Acute maxillary sinusitis, unspecified Patient Instructions: General Instructions Departure Forms: Tests/Procedures Additional Instructions: Z-Rick as directed. [id number] Flonase as directed. Tylenol ibuprofen for aching pain and fever headache. Follow-up with personal physician. Return if worse. Med/Other Pt SpecificInfo: Prescription(s) given Scripts Azithromycin (Zithromax Z-Rick) 250 Mg Dspk 250 MG PO DIRECTED for Infection, #1 DSPK 0 Refills 500 MG (2 tabs) day 1, then 1 tab days 2-5. Prov: Mauro Hensley MD 04/09/18 Disposition: 01 DISCHARGE HOME Condition: Stable Mauro Hensley MD April 09, 2018 14:31
== END 2018-04-09 14:37 | disposition home or self-care (01) ==
LOC: PHED 13:42 → PHEFT 14:37
DX: J01.00 Acute maxillary sinusitis, unspecified (principal); F43.10 Post-traumatic stress disorder, unspecified; F41.0 Panic disorder [episodic paroxysmal anxiety]; I48.91 Unspecified atrial fibrillation; I10 Essential (primary) hypertension; E78.00 Pure hypercholesterolemia, unspecified; J44.9 Chronic obstructive pulmonary disease, unspecified; I25.2 Old myocardial infarction; F17.200 Nicotine dependence, unspecified, uncomplicated
CPT/HCPCS: 99283